=== PATIENT | female | born 1950 | race Asian ===

== ENCOUNTER 2019-06-06 12:03 | Emergency (ER) | payer OTHER, MEDICAID ==
[~2019-06-06] VITALS: Ht 152.4 cm; Wt 48.1 kg
[~2019-06-06 12:03] MED LIST: ASPI-858 PO; ATOR10TA68 PO; DIGO125T79 PO; GLUXR500 PO; LINA5TAB2 PO; OMEP20CA11 PO; PRO10 PO
[2019-06-06 12:05] VITALS: BP_SYST 134
[2019-06-06 14:42] VITALS: BP_SYST 125
== END 2019-06-06 14:40 | disposition home or self-care (01) ==
LOC: SED 12:03
DX: I10 Essential (primary) hypertension (principal); Z79.899 Other long term (current) drug therapy
CPT/HCPCS: 99281

== ENCOUNTER 2021-06-18 15:30 | Emergency (ER) | payer OTHER, MEDICAID ==
[~2021-06-18] VITALS: Ht 152.4 cm; Wt 46.3 kg
[~2021-06-18 15:30] MED LIST changes: +DIGO125T PO; -DIGO125T79 PO; -OMEP20CA11 PO; +OMEP20CA15 PO
[2021-06-18 15:35] VITALS: BP_SYST 107
--- NOTE | 2021-06-18 16:00 | NUR ---
Patient triaged and placed in waiting room. VSS and patient appears in no acute distress at this time. Accompanied by SELF, awaiting available bed, and MD notified of need for MSE.
--- NOTE | 2021-06-18 16:20 | NUR ---
PT STATES LEFT WRIST BUMP THAT HAS GOTTEN BIG AND MORE PAINFUL, PAIN IS RADIATING UP ARM.
--- NOTE | 2021-06-18 17:15 | NUR ---
DR SALAZAR OUT TO EVALUATE PT IN TRIAGE ROOM
--- NOTE | 2021-06-18 19:00 | NUR ---
Patient given written and verbal discharge instructions and verbalizes understanding. ER MD discussed with patient the results and treatment provided. Patient in stable condition. ID arm band removed. Rx of NONE given. Patient educated on pain management and to follow up with PMD. Pain Scale 0/10. Opportunity for questions provided and answered. Medication side effect fact sheet provided.
== END 2021-06-18 19:00 | disposition home or self-care (01) ==
LOC: SED 15:30
DX: R22.32 Localized swelling, mass and lump, left upper limb (principal); E11.9 Type 2 diabetes mellitus without complications; Z79.82 Long term (current) use of aspirin; Z79.899 Other long term (current) drug therapy
CPT/HCPCS: 99283

== ENCOUNTER 2024-03-22 11:37 | Emergency (ER) | payer BC, MEDICAID ==
[~2024-03-22] VITALS: Ht 152.4 cm; Wt 45.4 kg
[2024-03-22 11:41] VITALS: BP_SYST 111; PULSE 102; RESP 16; TEMP 97.4; O2SAT 96
[2024-03-22 12:29] LABS: BASOPHILS # (AUTO) 0.1 K/uL (0.0-0.2); BASOPHILS % (AUTO) 0.7 % (0.0-2.0); EOSINOPHILS # (AUTO) 0.1 K/uL (0.0-0.4); EOSINOPHILS % (AUTO) 1.2 % (0.0-4.0); HEMATOCRIT 39.4 % (36-48); LYMPHOCYTES # (AUTO) 1.8 K/uL (1.0-5.5); LYMPHOCYTES % (AUTO) 19.4 % (20.5-51.5); MEAN CORPUSCULAR HEMOGLOBIN 31 pg (27-31); MEAN CORPUSCULAR HGB CONC 33 % (32-36); MEAN CORPUSCULAR VOLUME 93 fL (79.0-98.0); MONOCYTES # (AUTO) 0.9 K/uL (0.0-1.0); MONOCYTES % (AUTO) 9.6 % (1.7-9.3); NEUTROPHILS # (AUTO) 6.4 K/uL (1.8-7.7); NEUTROPHILS % (AUTO) 69.1 % (40.0-70.0); PLATELET COUNT (AUTO) 269 K/uL (130-430); RED BLOOD CELL COUNT(AUTO) 4.23 MIL/uL (4.2-6.2); RED CELL DISTRIBUTION WIDTH 13.7 % (9.0-15.0); WHITE BLOOD COUNT (AUTO) 9.2 K/uL (4.8-10.8)
[2024-03-22 13:05] LABS: ANION GAP 6 (5-15); CALCIUM 8.4 mg/dL (8.4-11.0); CARBON DIOXIDE 29 mmol/L (23-29); CHLORIDE 104 mmol/L (98-107); GLUCOSE 192 mg/dL (74-106); POTASSIUM 3.6 mmol/L (3.5-5.1); SODIUM SERUM 139 mmol/L (136-145)
[2024-03-22 13:06] LABS: CREATINE KINASE, TOTAL 117 U/L (26-192); CREATININE 0.88 mg/dL (0.55-1.30); UREA NITROGEN, BLOOD 12 mg/dL (8-21)
[2024-03-22 13:13] LABS: INFLUENZA TYPE A Negative (NEGATIVE); INFLUENZA TYPE B NEGATIVE (NEGATIVE)
[2024-03-22 13:28] VITALS: BP_SYST 111; PULSE 86; RESP 17; TEMP 97.2; O2SAT 96
[2024-03-22 20:01] LABS: DIGOXIN 0.4 ng/mL (0.80-2.00)
== END 2024-03-22 13:29 | disposition home or self-care (01) ==
LOC: SED 11:37
DX: M79.10 Myalgia, unspecified site (principal); R07.9 Chest pain, unspecified; E11.9 Type 2 diabetes mellitus without complications; Z20.822 Contact with and (suspected) exposure to COVID-19
CPT/HCPCS: 36415; 80048; 80162; 82550; 85025; 99283